=== PATIENT | female | born 1955 | race Caucasian/White ===

== ENCOUNTER 2017-03-08 11:06 | Inpatient (IN) | payer MEDICARE, MEDICAID ==
--- NOTE | 2017-03-08 11:27 | ED Physician Chart ---
ED Chief Complaint/HPI - Patient Information Date Seen:: 03/08/17 Time Seen:: 11:15 Chief Complaint:: Hematochezia History of Present Illness:: onset x one day of hematochezia; no report of hematemesis, melena, Abd. pain, flank pain, A/N/V/D/C, fever, chills, C/P, SOB, cough, neck pain, H/As, weakness , or dizziness Allergies:: Allergies Allergy/AdvReac Type Severity Reaction Status Date / Time No Known Allergies Allergy Verified 03/08/17 11:17 Vitals:: Vital Signs - 8 hr 03/08/17 11:17 Temp 97.7 F HR 70 RR 14 BP 140/69 O2 Sat % 98 Historian:: Patient, EMS Review:: Nurse's Note Reviewed, EMS run form Reviewed ED Review of Systems - Review of Systems General/Constitutional: Fever, Chills, No weight loss, Weakness, No diaphoresis , No edema, No loss of appetite Skin: No skin lesions, No rash, No bruising Head: No headache, No light-headedness Eyes: No loss of vision, No pain, No diplopia ENT: No earache, No nasal drainage, No sore throat, No tinnitus Neck: No neck pain, No swelling, No thyromegaly, No stiffness, No mass noted Cardio Vascular: No chest pain, No palpitations, No PND, No orthopnea, No edema Pulmonary: No SOB, No cough, No sputum, No wheezing GI: Nausea, Vomiting, Diarrhea, No pain, No melena, Hematochezia, No constipation, No hematemesis G/U: No dysuria, No frequency, No hematuria Operating Room Tech: No vaginal discharge, No abnormal vaginal bleed, No contraction Musculoskeletal: No bone or joint pain, No back pain, No muscle pain Endocrine: No polyuria, No polydipsia Psychiatric: No prior psych history, No depression, No anxiety, No suicidal ideation Hematopoietic: No bruising, No lymphadenopathy Allergic/Immuno: No urticaria, No angioedema Neurological: No syncope, Focal symptoms, No weakness, No paresthesia, No headache, No seizure, No dizziness, Confusion, No vertigo ED Past Medical History - Past Medical History Obtainable: Yes Past Medical History: HTN, CVA/TIA, PUD/GERD, Dementia Family History: Diabetes Melitus, HTN Social History: Non Smoker, No Alcohol, No Drug Use, Single, Care Facility Surgical History: PEG/GTube Psychiatricy History: Dementia Medication: Reviewed Family Medical History - Family Member Mother History Unknown: Yes ED Physical Exam - Physical Examination General/Constitutional: Awake, Well-developed, well-nourished, Alert, No distress, GCS 15, Non-toxic appearing, Ambulatory Head: Atraumatic Eyes: Lids, conjuctiva normal, PERRL, EOMI Skin: Nl inspection, No rash, No skin lesions, No ecchymosis, Well hydrated, No lymphadenopathy ENMT: External ears, nose nl, Nasal exam nl, Lips, teeth, gums nl Neck: Nontender, Full ROM w/o pain, No JVD, No nuchal rigidity, No bruit, No mass, No stridor Respiratory: Nl effort/Exclusion, Clear to Auscultation, No Wheeze/Rhonchi/Rales Cardio Vascular: RRR, No murmur, gallop, rubs, NL S1 S2 GI: No tenderness/rebounding/guarding, No organomegaly, No hernia, Normal BS's, Nondistended, No mass/bruits, No McBurney tenderness : No CVA tenderness Extremities: No tenderness or effusion, Full ROM, normal strength in all extremities, No edema, Normal digits & nails Neuro/Psych: Alert/oriented, DTR's symmetric, Normal sensory exam, Normal motor strength, Judgement/insight normal, Mood normal, Normal gait Other Neuro/Psych comments:: + old CVA; Disoriented and Confused Misc: Normal back, No paraspinal tenderness ED Labs/Radiology/EKG Results - Lab Results Comments:: Na+: 133 - Radiology Results Comments:: NAD - EKG Interpretations EKG Time:: 11:52 Rate & Rhythm: 85; NSR Comments:: T-Wave Inversions ED Septic Shock - . Is Septic Shock (SBP<90, OR Lactate>4 mmol\L) present?: No - <6hrs of presentation: Vital Signs: Vital Signs - 8 hr 03/08/17 11:17 Temp 97.7 F HR 70 RR 14 BP 140/69 O2 Sat % 98 ED Reassessment (Disposition) - Reassessment Reassessment Condition:: Improved - Diagnosis Diagnosis:: Dx: Myocardial Ischemia; Hematochezia; GI Bleed; Hyponatremia; Dehydration; Rectal Bleeding - Aftercare/Follow up Instructions Aftercare/Follow-Up Instructions:: Counseled pt regarding lab results/diagnosis & need follow up, Counseled pt & family regarding lab results/diagnosis & need follow up - Patient Disposition Discharge/Transfer:: Acute Care w/in this hosp Accepting Physician:: Dr. Lennon Time Called:: 1350 Time Responded:: 13:50 Admitted to:: Telemetry Spoke to:: Dr. Lennon Admitting Medical Physician:: Dr. Lennon Condition at Disposition:: Stable, Improved
[2017-03-08] MEDS ORDERED: Sodium Chloride 0.9% 1,000 ML IV ONE (11:28)
[2017-03-08 11:48] LABS: % BASOPHILS 0.5 % (0.0-2.0); % EOSINOPHILS 3.2 % (0.0-5.0); % LYMPHOCYTES 24.3 % (20.0-50.0); HEMOGLOBIN 14.5 gm/dL (12-16); MEAN CELL VOLUME 88.4 fl (81-100); MEAN CORPUSCULAR HEMOGLOBIN 29.8 pg (27.0-31.0); MEAN CORPUSCULAR HGB CONC 33.8 pg (28.0-36.0); MEAN PLATELET VOLUME 7.8 fl; NEUTROPHILE ABSOLUTE 4.8 Th/cmm (1.8-8.0); PLATELET COUNT 355 Th/cmm (150-400); RED BLOOD COUNT 4.87 Mil/cmm (3.80-5.10); RED CELL DISTRIBUTION WIDTH 12.7 % (11.5-20.0); WHITE BLOOD COUNT 7.3 Th/cmm (4.8-10.8)
[2017-03-08 12:02] LABS: INR 1.06 (0.5-1.4)
[2017-03-08 12:16] LABS: AMYLASE SERUM 33 U/L (29-103); LIPASE 25 U/L (11-82)
[2017-03-08 12:19] LABS: ALB/GLOB RATIO 1.1 (1.0-1.8); ALKALINE PHOSPHATASE 96 U/L (34-104); ANION GAP 11.5 (7.0-16.0); BILIRUBIN,TOTAL 0.4 mg/dL (0.3-1.0); BUN - UREA NITROGEN 23 mg/dL (7-25); BUN/CREATININE RATIO 57.5; CALCIUM SERUM 9.8 mg/dL (8.6-10.3); CARBON DIOXIDE 21.6 mEq/L (21.0-31.0); CHLORIDE 104 mEq/L (98-107); CHOLESTEROL 173 mg/dL (<200); CREATININE - SERUM 0.4 mg/dL (0.6-1.2); GLUCOSE 123 mg/dL (70-105); POTASSIUM SERUM 4.1 mEq/L (3.5-5.1); SGOT 21 U/L (13-39); SGPT/ALT 18 U/L (7-52); SODIUM SERUM 133 mEq/L (136-145); TRIGLYCERIDES 206 mg/dL (<150)
--- NOTE | 2017-03-08 12:31 | Diagnostic Imaging Report ---
Portable chest x-ray HISTORY: Pain There is a very poor inspiration. The heart is enlarged. No acute focal pulmonary processes. No evidence of pleural fluid. IMPRESSION: 1. Cardiomegaly 2. Allowing for a poor inspiration, no acute focal pulmonary processes.
[2017-03-08] MEDS ORDERED: D5-0.9%NS 1,000 ML IV SCH (17:30)
[2017-03-08] MEDS ORDERED: IOHEXOL 300MG/ML 100 ML VIAL ONE (20:31)
[2017-03-08] MEDS: Lactulose 10 Gm/15 mL 30mL UDC PO SCH (20:36)
[2017-03-08] MEDS: Polyvinyl Alcohol Ophth Soln 15 mL Bottle EACH EYE SCH (20:36)
[2017-03-08] MEDS: Sodium Chloride 0.9% 1,000 ML IV SCH (20:39)
[2017-03-08 21:33] VITALS: BP 120/66
[2017-03-09] MEDS: Fleet Enema 135 mL RC PRN ×2 (03:19→03:20)
[2017-03-09 06:42] LABS: ANION GAP 10.2 (7.0-16.0); BUN - UREA NITROGEN 18 mg/dL (7-25); CALCIUM SERUM 8.8 mg/dL (8.6-10.3); CARBON DIOXIDE 22.5 mEq/L (21.0-31.0); CHLORIDE 107 mEq/L (98-107); CREATININE - SERUM 0.4 mg/dL (0.6-1.2); GLUCOSE 107 mg/dL (70-105); POTASSIUM SERUM 3.7 mEq/L (3.5-5.1); SODIUM SERUM 136 mEq/L (136-145)
[2017-03-09 07:02] LABS: % EOSINOPHILS 2.5 % (0.0-5.0); % LYMPHOCYTES 29.3 % (20.0-50.0); % MONOCYTES 7.8 % (2.0-10.0); % NEUTROPHILS 60.4 % (40.0-80.0); HEMOGLOBIN 12.9 gm/dL (12-16); MEAN CELL VOLUME 88.6 fl (81-100); MEAN CORPUSCULAR HGB CONC 33.9 pg (28.0-36.0); MEAN PLATELET VOLUME 8.1 fl; NEUTROPHILE ABSOLUTE 3.6 Th/cmm (1.8-8.0); PLATELET COUNT 337 Th/cmm (150-400); RED BLOOD COUNT 4.29 Mil/cmm (3.80-5.10); RED CELL DISTRIBUTION WIDTH 12.7 % (11.5-20.0); WHITE BLOOD COUNT 5.9 Th/cmm (4.8-10.8)
--- NOTE | 2017-03-09 08:21 | Diagnostic Imaging Report ---
CT abdomen and pelvis with intravenous contrast Indication: Abdominal distention Comparison: None, Technique: Axial images were obtained from the lung bases to the bilateral proximal femurs with IV contrast. Coronal reconstructions were made. total DLP: 940, [id number] FINDINGS: Hypoventilatory atelectatic lung changes are seen with right basal passive atelectatic changes. Exam is limited due to motion. Multiple hepatic cysts are noted the largest along the posterior right lobe measuring 7 x 6 cm. Mildly distended gallbladder is noted. 5 mm indeterminate focus is seen along the fundus of the gallbladder. No focal splenic or pancreatic lesions. No focal adrenal lesions. No evidence of hydronephrosis or focal renal lesions. There is severe distal fecal impaction with massive distention of the sigmoid colon. Additional generalized distended loops of primarily large bowel are noted. There is trace fluid in the right lower quadrant. A gastrostomy feeding tube is noted. Appendix is not -visualized. Moderate atherosclerotic vascular disease is noted. Degenerative changes of the spine are noted with mild scoliosis. There is a chronic moderate compression deformity of L1. IMPRESSION: Marked distal fecal impaction with massive distention of the sigmoid colon and primarily large bowel loops proximally secondary to patient's distal fecal impaction. Mild distended gallbladder. 5mm focus is seen along the fundus of the gallbladder, indeterminate, and may represent a gallstone or gallbladder wall polyp. Recommend short-term follow-up with ultrasound. Hepatic cysts. Trace free fluid suspected in the right lower quadrant. Appendix was not visualized. Percutaneous gastrostomy feeding tube Atherosclerotic vascular disease Chronic moderate compression deformity of L1.
[2017-03-09] MEDS ORDERED: [UNRECOGNIZED DRUG - OTHER] PO SCH (09:00)
[2017-03-09] MEDS: Polyvinyl Alcohol Ophth Soln 15 mL Bottle EACH EYE SCH ×4 (09:00→20:22)
[2017-03-09] MEDS ORDERED: ENTERAL NUTRITION FORMULA PO SCH (09:00)
[2017-03-09] MEDS: Lactulose 10 Gm/15 mL 30mL UDC PO SCH ×2 (09:00→20:23)
[2017-03-09] MEDS: Sodium Chloride 0.9% 1,000 ML IV SCH (17:25)
--- NOTE | 2017-03-09 18:47 | History & Physical ---
ADMIT DATE: 03/08/2017 CHIEF COMPLAINT: Hematochezia. HISTORY OF PRESENT ILLNESS: The patient is a 61-year-old female with reports of 1 day of hematochezia, ____ hematemesis, melena, abdominal pain, flank pain or other complaints. ALLERGIES: No known allergies. REVIEW OF SYSTEMS: See history of present illness. PAST MEDICAL HISTORY: Hypertension, CVA/TIA, peptic ulcer/GERD, dementia. FAMILY HISTORY: Diabetes and hypertension. SOCIAL HISTORY: No reports of smoking, drinking or drug use. The patient is a resident of a longterm facility. PAST SURGICAL HISTORY: Gastrostomy tube. PSYCHIATRIC HISTORY: Dementia. MEDICATIONS: See medication form. PHYSICAL EXAMINATION: GENERAL: The patient is awake, alert, nontoxic in appearance. VITAL SIGNS: On admission, temperature 98.7, pulse of 70, blood pressure 140/69, respirations 14, oxygen saturation 90%. HEENT: Normocephalic, atraumatic. Extraocular movements intact. Pupils reactive to light. Oropharynx is clear. NECK: Supple. No thyromegaly. CARDIOVASCULAR: S1, S2. No rubs, gallops. RESPIRATORY: Clear. No wheezes or rhonchi. GASTROINTESTINAL: Soft, nontender, nondistended, bowel sounds. GENITOURINARY: No CVA tenderness. BACK: No midline tenderness. NEUROLOGIC: Cranial nerves 2-12 intact. Sensation intact. Neurovascular is intact. Normal gait. PSYCHIATRIC: The patient is slightly confused. LABORATORY DATA: Hematology; WBC 7.3, hemoglobin 14.5, hematocrit 43.0, platelet count 355. PT 11.0, INR 1.06. Chemistry: Sodium 133, potassium 4.1, chloride 104, bicarbonate 21, anion gap 11, BUN 23, creatinine 0.4, GFR more than 60, glucose 123, calcium 9.8, total bilirubin 0.4, AST 21, ALT 18, and alk phos 96, creatinine kinase 42. Troponin less than 0.01, BNP 7.9, total protein 7.9, albumin 4.2, globulin 3.7, triglycerides 206, cholesterol 173, LDL is 148, HDL 30, amylase is 33, lipase is 25. MICROBIOLOGY: 03/08/2017, pending. RADIOLOGY: Chest x-ray shows cardiomegaly. No acute focal pulmonary process. Abdomen/pelvis CT shows marked distal fecal impaction with massive distention of the sigmoid colon and primarily large bowel approximately secondary to patient's distal fecal impaction, mild distended gallbladder 0.5 mm, hepatic cysts, appendix not visualized, PEG tube in place, atherosclerotic vascular disease, chronic moderate compression deformity of L1. EKG shows normal sinus with T-wave inversions. IMPRESSION: 1. Rectal bleed. 2. Hematochezia. 3. Rule out acute coronary syndrome. 4. Gastrointestinal bleed. 5. Hyponatremia. 6. Hyperglycemia. 7. Hypertriglyceridemia. 8. Hypertension. 9. History of cerebrovascular accident/transient ischemic attack. 10. History of peptic ulcer disease/gastroesophageal reflux disease. 11. Dementia. 12. Dysphagia. 13. Status post gastrostomy tube. PLAN: The patient admitted to telemetry unit at [facility]. Due for labs as needed. JOB# [id number]
--- NOTE | 2017-03-09 20:59 | Consultation ---
DATE OF CONSULTATION: 03/09/2017 REQUESTING PHYSICIAN: Dr. Emery Lennon. REASON FOR CONSULTATION: Rectal bleeding. HISTORY OF PRESENT ILLNESS: This is a 61-year-old female with encephalopathy and dysphagia status post G-tube insertion, admitted from [facility] for rectal bleeding. On imaging here, she was noted to have fecal impaction. Her G-tube feedings were restarted. PAST MEDICAL HISTORY: As above. It is unknown whether the patient has had a previous colonoscopy. MEDICATIONS: Here are artificial tears, lactulose, and IV fluids. Also, the patient received pantoprazole in the ER and Fleet enema. ALLERGIES: None. SOCIAL HISTORY: No recent tobacco, alcohol, or drugs. senior living resident. FAMILY HISTORY: Noncontributory. REVIEW OF SYSTEMS: A comprehensive 12-point review of systems conducted and is only positive for those signs and symptoms present in history of present illness. PHYSICAL EXAMINATION: VITAL SIGNS: Temperature 98.4, blood pressure 124/67, pulse of 89, respirations 12, and O2 sat is 97%. GENERAL: The patient is a well-developed, chronically ill-appearing female in no acute distress, nonverbal. HEENT: Sclerae nonicteric. Oropharynx is clear. CARDIOVASCULAR: Regular rate and rhythm. LUNGS: With occasional rhonchi at the bases. ABDOMEN: Soft, slightly distended, and mild tenderness to palpation. Intact G-tube. EXTREMITIES: No edema. LABORATORY DATA AND IMAGING: Hemoglobin is 12.9, WBC count is 5.9, and platelet count is 337,000. INR is normal. Creatinine is normal. Liver enzymes are normal. Amylase and lipase are normal. CT of the abdomen and pelvis done without contrast in the ER showed fecal impaction in the distal rectum with massive distention of the sigmoid colon and large bowel loops, mildly distended gallbladder with possible focus representing either a stone or polyp, hepatic cyst, G-tube intact. IMPRESSION: 1. Fecal impaction. 2. Rectal bleeding, likely from combination of rectal ulcer and/or hemorrhoids and/or proctitis. 3. Dysphagia with G-tube insertion. 4. Encephalopathy. RECOMMENDATIONS: 1. Bowel preparation will be given per G-tube and per rectum. 2. Hold tube feedings for today. 3. Monitor hemoglobin, transfuse as necessary. 4. May need colonoscopy eventually once the patient has been cleared out. This will take place if procedure has not been done recently. Thank you, Dr. Emery Lennon for involving us in the care of this patient. If you have any further questions, please call us. JOB# [id number]
[2017-03-10] MEDS: Sodium Chloride 0.9% 1,000 ML IV SCH ×2 (02:42→21:17)
--- NOTE | 2017-03-10 05:20 | Progress Notes ---
DATE: 03/09/2017 SUBJECTIVE: The patient is asleep. The patient is on IV fluids. OBJECTIVE VITAL SIGNS: Temperature 98.4, pulse 89, blood pressure 124/67, O2 sat is 97% on room air. CARDIOVASCULAR: S1 and S2 is clear. GASTROINTESTINAL: Soft, distended, nontender. Positive bowel sounds. LABORATORY DATA: Hematology; WBC 5.9, hemoglobin 12.9, hematocrit 43.0. Platelet count of 337. Chemistry: Sodium 137, potassium 3.7, chloride 104, bicarbonate 22, anion gap 10, BUN 18, creatinine 0.4. GFR is 160, glucose is 107, calcium 8.8. Microbiology: MRSA screen from 03/08/2017 negative. Radiology: No new results. ASSESSMENT: 1. Fecal impaction. 2. Rectal bleed. 3. Encephalopathy. 4. Hyponatremia, resolved. 5. Hyperglycemia. 6. Hypertriglyceridemia. 7. Dyslipidemia. 8. Hypertension. 9. Cerebrovascular accident/transient ischemic attack. 10. Peptic ulcer disease/gastroesophageal reflux disease. 11. Dementia. 12. Dysphagia. 13. Status post gastrostomy tube. PLAN: 1. Continue current medication. 2. Tube feedings on hold. 3. The patient may need colonoscopy. If you have any further questions, please call us. JOB# [id number]
[2017-03-10 06:09] LABS: HEMATOCRIT 36.2 % (41.0-60); HEMOGLOBIN 12.2 gm/dL (12-16); MEAN CORPUSCULAR HGB CONC 33.7 pg (28.0-36.0); MEAN PLATELET VOLUME 8.5 fl; RED BLOOD COUNT 4.07 Mil/cmm (3.80-5.10); RED CELL DISTRIBUTION WIDTH 12.8 % (11.5-20.0); WHITE BLOOD COUNT 5.5 Th/cmm (4.8-10.8)
[2017-03-10 06:25] LABS: ANION GAP 7.9 (7.0-16.0); BUN - UREA NITROGEN 10 mg/dL (7-25); BUN/CREATININE RATIO 33.3; CALCIUM SERUM 8.1 mg/dL (8.6-10.3); CARBON DIOXIDE 24.3 mEq/L (21.0-31.0); CHLORIDE 107 mEq/L (98-107); CREATININE - SERUM 0.3 mg/dL (0.6-1.2); GLUCOSE 91 mg/dL (70-105); POTASSIUM SERUM 3.2 mEq/L (3.5-5.1); SODIUM SERUM 136 mEq/L (136-145)
[2017-03-10 07:41] LABS: BAND NEUTROPHILE 1 % (0-10); NEUTROPHILS 54 % (40-80); TOTAL CELLS COUNTED 100
[2017-03-10 07:42] LABS: EOSINOPHIL 4 % (0-5); PLATELET ESTIMATE ADEQUATE (NORMAL)
[2017-03-10] MEDS: Lactulose 10 Gm/15 mL 30mL UDC PO SCH ×2 (09:10→20:54)
[2017-03-10] MEDS: Polyvinyl Alcohol Ophth Soln 15 mL Bottle EACH EYE SCH ×4 (09:14→20:55)
--- NOTE | 2017-03-10 09:41 | General Progress Note ---
Subjective - Review of Systems Service Date: 03/10/17 Events since last encounter: CT fecal impaction colonoscopy today Objective - Results Result Diagrams: 03/10/17 05:45 03/10/17 05:45 Recent Labs: Laboratory Last Values WBC 5.5 Th/cmm (4.8-10.8) 03/10/17 05:45 RBC 4.07 Mil/cmm (3.80-5.10) 03/10/17 05:45 Hgb 12.2 gm/dL (12-16) 03/10/17 05:45 Hct 36.2 % (41.0-60) L 03/10/17 05:45 MCV 89.0 fl (81-100) 03/10/17 05:45 MCH 30.0 pg (27.0-31.0) 03/10/17 05:45 MCHC Differential 33.7 pg (28.0-36.0) 03/10/17 05:45 RDW 12.8 % (11.5-20.0) 03/10/17 05:45 Plt Count 337 Th/cmm (150-400) 03/09/17 05:50 MPV 8.5 fl 03/10/17 05:45 Neutrophils % 60.4 % (40.0-80.0) 03/09/17 05:50 Band Neutrophils % 1 % (0-10) 03/10/17 05:45 Lymphocytes % 29.3 % (20.0-50.0) 03/09/17 05:50 Monocytes % 7.8 % (2.0-10.0) 03/09/17 05:50 Eosinophils % 2.5 % (0.0-5.0) 03/09/17 05:50 Basophils % 0.0 % (0.0-2.0) 03/09/17 05:50 Neutrophils (Manual) 54 % (40-80) 03/10/17 05:45 Lymphocytes 40 % (20-50) 03/10/17 05:45 Monocytes 1 % (2-10) L 03/10/17 05:45 Eosinophils 4 % (0-5) 03/10/17 05:45 Nucleated RBCs 2.0 % (0-0) H 03/10/17 05:45 Platelet Estimate ADEQUATE (NORMAL) 03/10/17 05:45 PT 11.0 SECONDS (9.5-11.5) 03/08/17 11:35 INR 1.06 (0.5-1.4) 03/08/17 11:35 Sodium 136 mEq/L (136-145) 03/10/17 05:45 Potassium 3.2 mEq/L (3.5-5.1) L 03/10/17 05:45 Chloride 107 mEq/L (98-107) 03/10/17 05:45 Carbon Dioxide 24.3 mEq/L (21.0-31.0) 03/10/17 05:45 Anion Gap 7.9 (7.0-16.0) 03/10/17 05:45 BUN 10 mg/dL (7-25) 03/10/17 05:45 Creatinine 0.3 mg/dL (0.6-1.2) L 03/10/17 05:45 Est GFR ( Amer) > 60.0 ml/min (>90) 03/10/17 05:45 Est GFR (Non-Af Amer) > 60.0 ml/min 03/10/17 05:45 BUN/Creatinine Ratio 33.3 03/10/17 05:45 Glucose 91 mg/dL (70-105) 03/10/17 05:45 POC Glucose 94 MG/DL (70 - 105) 03/10/17 05:54 Calcium 8.1 mg/dL (8.6-10.3) L 03/10/17 05:45 Total Bilirubin 0.4 mg/dL (0.3-1.0) 03/08/17 11:35 AST 21 U/L (13-39) 03/08/17 11:35 ALT 18 U/L (7-52) 03/08/17 11:35 Alkaline Phosphatase 96 U/L (34-104) 03/08/17 11:35 Ammonia 49 umol/L (16-53) 03/10/17 05:45 Creatine Kinase 42 U/L (30-223) 03/08/17 11:35 Troponin I < 0.01 ng/mL (0.01-0.05) L 03/08/17 11:35 B-Natriuretic Peptide 7.9 pg/mL (5.0-100.0) 03/08/17 11:35 Total Protein 7.9 gm/dL (6.0-8.3) 03/08/17 11:35 Albumin 4.2 gm/dL (3.7-5.3) 03/08/17 11:35 Globulin 3.7 gm/dL 03/08/17 11:35 Albumin/Globulin Ratio 1.1 (1.0-1.8) 03/08/17 11:35 Triglycerides 206 mg/dL (<150) H 03/08/17 11:35 Cholesterol 173 mg/dL (<200) 03/08/17 11:35 LDL Cholesterol Direct 148 mg/dL (75-193) 03/08/17 11:35 HDL Cholesterol 30 mg/dL (23-92) 03/08/17 11:35 Amylase 33 U/L (29-103) 03/08/17 11:35 Lipase 25 U/L (11-82) 03/08/17 11:35 - Physical Exam Vitals and I&O: Vital Signs Temp 98.0 F 03/10/17 04:00 Pulse 61 03/10/17 04:00 Resp 18 03/10/17 04:00 BP 117/71 03/10/17 04:00 Pulse Ox 95 03/10/17 04:00 Intake & Output 03/09/17 03/10/17 03/10/17 18:59 06:59 18:59 Intake Total 4928.333 Output Total 1 Balance -1 4928.333 Weight (lbs) 80.739 kg 79.832 kg Intake: Intake, IV Amount 928.333 Sodium Chloride 0.9% 1, 928.333 000 ml @ 100 mls/hr IV . Q10H [facility] Rx#:[id number] Other 4000 Output: Stool 1 Other: # Voids 3 3 # Bowel Movements 3 Stool Characteristics Soft Brown Active Medications: Current Medications Artificial Tears (Artificial Tears Ophth Soln) 1 drop EACH EYE QID LYSSA Stop: 05/07/17 20:59 Last Admin: 03/10/17 09:14 Dose: 1 drop Sodium Chloride (Nacl 0.9%) 1,000 mls @ 100 mls/hr IV .Q10H LYSSA Stop: 05/07/17 17:55 Last Admin: 03/10/17 02:42 Dose: 100 mls/hr Lactulose (Cephulac) 20 gm PO Q12HR LYSSA Stop: 05/07/17 20:59 Last Admin: 03/10/17 09:10 Dose: Not Given Ondansetron HCl (Zofran) 4 mg IV Q4H PRN PRN Reason: Nausea / Vomiting Stop: 05/08/17 10:30 Last Admin: 03/09/17 21:35 Dose: 4 mg
--- NOTE | 2017-03-10 12:26 | Consultation ---
DATE OF CONSULTATION: 03/10/2017 REFERRING PHYSICIAN: Dr. Lennon. REASON FOR CONSULTATION: Rectal bleeding. Thank you for referring this patient to me. HISTORY OF PRESENT ILLNESS: This is a 61-year-old female who came in to ER because of rectal bleeding. No hematemesis. PAST MEDICAL HISTORY: Includes hypertension, CVA, TIA, peptic ulcer, GERD, dementia, and diabetes. On admission, the CT scan showed severe fecal impaction with markedly distended colon. LABORATORY STUDIES: CBC is normal. Chemistry likewise. PHYSICAL EXAMINATION: GENERAL: The patient has a G-tube in place. ABDOMEN: Distended. There is a scar in the midline abdomen. The surgery of which we do not know at this point. She has minimal tenderness. No mass is palpated. GI evaluation is in place and colonoscopy has been scheduled. We will follow with you. JOB# [id number]
[2017-03-10] MEDS ORDERED: Meperidine 50 mg/mL 1mL Syr ONE ×2 (12:50→13:32)
[2017-03-10] MEDS ORDERED: Midazolam 1mg/ml 2 ml vial IV ONE (12:51)
[2017-03-10] MEDS ORDERED: fentaNYL Citrate 100 mcg/2mL Vial ONE (13:13)
--- NOTE | 2017-03-10 15:49 | Operative Report ---
DATE OF SURGERY: 03/10/2017 PROCEDURE: Colonoscopy with biopsy. PREOPERATIVE DIAGNOSIS: Rectal bleeding and fecal impaction. POSTPROCEDURE DIAGNOSES: 1. Long dilated colon with suboptimal bowel preparation; exam up to cecum. 2. An 8 mm sessile distal rectal polyp, possibly overlying ulcerations, status post biopsy. 3. Small hemorrhoids. INDICATION: A 61-year-old, mentally challenged female, with dysphagia and G-tube insertion and admitted for fecal impaction and rectal bleeding. CONSENT: Informed consent was obtained from the patient's family prior to procedure after explaining risks, benefits, and alternatives including but not limited to infection, bleeding, perforation and . SEDATION: 2 mg of Versed and 50 mg IV Demerol. DESCRIPTION OF PROCEDURE AND FINDINGS: The procedure took place as an inpatient in the GI suite of [facility]. The patient was kept in the left lateral decubitus position. Adequate sedation was achieved with the above medications. Rectal examination revealed normal sphincter tone with no rectal masses. The scope was then advanced all the way to the cecum, which was visualized by landmarks of ileocecal valves. The bowel preparation was suboptimal and only the ileocecal was able to be seen. The appendiceal orifice was not seen properly. Given suboptimal bowel preparation, lesion less than. 1 cm may have been missed. The scope was then slowly withdrawn and underlying colonic mucosa examined in detail. The proximal scope withdrawal time from cecum to anus was about 8 minutes. In the distal rectum, there was an 8 mm distal rectal polyp, perhaps overlying an ulceration and the rectum was somewhat limited due to the presence of the liquid stool here. Small internal hemorrhoids were noted on end view of the anal verge. The scope was withdrawn. The patient tolerated the procedure well, no complications anticipated. RECOMMENDATIONS: 1. Follow up biopsy results. 2. Resume tube feedings. 3. Monitor hemoglobin, transfuse as necessary. 4. Laxatives to avoid fecal impaction in the future. Thank you, Dr. Emery Lennon for involving us in the care of your patient. If you have any further questions, please call us to help. JOB# [id number] JULIO
[2017-03-10] MEDS ORDERED: Potassium Chloride Elixir 20 mEq /15 mL UDC GT ONE ×3 (19:03→20:00)
[2017-03-11] MEDS: Polyvinyl Alcohol Ophth Soln 15 mL Bottle EACH EYE SCH ×2 (09:24→13:34)
[2017-03-11] MEDS: Lactulose 10 Gm/15 mL 30mL UDC PO SCH (09:24)
--- NOTE | 2017-03-11 10:11 | General Progress Note ---
Subjective - Review of Systems Service Date: 03/11/17 Events since last encounter: minimal LEENA drainage check PT await Cardiology prescription for anticoagulant Objective - Results Result Diagrams: 03/10/17 05:45 03/10/17 05:45 Recent Labs: Laboratory Last Values WBC 5.5 Th/cmm (4.8-10.8) 03/10/17 05:45 RBC 4.07 Mil/cmm (3.80-5.10) 03/10/17 05:45 Hgb 12.2 gm/dL (12-16) 03/10/17 05:45 Hct 36.2 % (41.0-60) L 03/10/17 05:45 MCV 89.0 fl (81-100) 03/10/17 05:45 MCH 30.0 pg (27.0-31.0) 03/10/17 05:45 MCHC Differential 33.7 pg (28.0-36.0) 03/10/17 05:45 RDW 12.8 % (11.5-20.0) 03/10/17 05:45 Plt Count 337 Th/cmm (150-400) 03/09/17 05:50 MPV 8.5 fl 03/10/17 05:45 Neutrophils % 60.4 % (40.0-80.0) 03/09/17 05:50 Band Neutrophils % 1 % (0-10) 03/10/17 05:45 Lymphocytes % 29.3 % (20.0-50.0) 03/09/17 05:50 Monocytes % 7.8 % (2.0-10.0) 03/09/17 05:50 Eosinophils % 2.5 % (0.0-5.0) 03/09/17 05:50 Basophils % 0.0 % (0.0-2.0) 03/09/17 05:50 Neutrophils (Manual) 54 % (40-80) 03/10/17 05:45 Lymphocytes 40 % (20-50) 03/10/17 05:45 Monocytes 1 % (2-10) L 03/10/17 05:45 Eosinophils 4 % (0-5) 03/10/17 05:45 Nucleated RBCs 2.0 % (0-0) H 03/10/17 05:45 Platelet Estimate ADEQUATE (NORMAL) 03/10/17 05:45 PT 11.0 SECONDS (9.5-11.5) 03/08/17 11:35 INR 1.06 (0.5-1.4) 03/08/17 11:35 Sodium 136 mEq/L (136-145) 03/10/17 05:45 Potassium 3.2 mEq/L (3.5-5.1) L 03/10/17 05:45 Chloride 107 mEq/L (98-107) 03/10/17 05:45 Carbon Dioxide 24.3 mEq/L (21.0-31.0) 03/10/17 05:45 Anion Gap 7.9 (7.0-16.0) 03/10/17 05:45 BUN 10 mg/dL (7-25) 03/10/17 05:45 Creatinine 0.3 mg/dL (0.6-1.2) L 03/10/17 05:45 Est GFR ( Amer) > 60.0 ml/min (>90) 03/10/17 05:45 Est GFR (Non-Af Amer) > 60.0 ml/min 03/10/17 05:45 BUN/Creatinine Ratio 33.3 03/10/17 05:45 Glucose 91 mg/dL (70-105) 03/10/17 05:45 POC Glucose 94 MG/DL (70 - 105) 03/10/17 05:54 Calcium 8.1 mg/dL (8.6-10.3) L 03/10/17 05:45 Total Bilirubin 0.4 mg/dL (0.3-1.0) 03/08/17 11:35 AST 21 U/L (13-39) 03/08/17 11:35 ALT 18 U/L (7-52) 03/08/17 11:35 Alkaline Phosphatase 96 U/L (34-104) 03/08/17 11:35 Ammonia 49 umol/L (16-53) 03/10/17 05:45 Creatine Kinase 42 U/L (30-223) 03/08/17 11:35 Troponin I < 0.01 ng/mL (0.01-0.05) L 03/08/17 11:35 B-Natriuretic Peptide 7.9 pg/mL (5.0-100.0) 03/08/17 11:35 Total Protein 7.9 gm/dL (6.0-8.3) 03/08/17 11:35 Albumin 4.2 gm/dL (3.7-5.3) 03/08/17 11:35 Globulin 3.7 gm/dL 03/08/17 11:35 Albumin/Globulin Ratio 1.1 (1.0-1.8) 03/08/17 11:35 Triglycerides 206 mg/dL (<150) H 03/08/17 11:35 Cholesterol 173 mg/dL (<200) 03/08/17 11:35 LDL Cholesterol Direct 148 mg/dL (75-193) 03/08/17 11:35 HDL Cholesterol 30 mg/dL (23-92) 03/08/17 11:35 Amylase 33 U/L (29-103) 03/08/17 11:35 Lipase 25 U/L (11-82) 03/08/17 11:35 - Physical Exam Vitals and I&O: Vital Signs Temp 97.1 F 03/11/17 04:00 Pulse 64 03/11/17 04:00 Resp 19 03/11/17 04:00 BP 111/49 03/11/17 04:00 Pulse Ox 98 03/11/17 04:00 Intake & Output 03/10/17 03/11/17 03/11/17 18:59 06:59 18:59 Intake Total 1180 Balance 1180 Weight (lbs) 79.832 kg 82.418 kg Intake: Intake, IV Amount 1000 Sodium Chloride 0.9% 1, 1000 000 ml @ 100 mls/hr IV . Q10H [facility] Rx#:[id number] Oral 0 Tube Feeding 180 Other: # Voids 4 4 # Bowel Movements 3 Active Medications: Current Medications Artificial Tears (Artificial Tears Ophth Soln) 1 drop EACH EYE QID LYSSA Stop: 05/07/17 20:59 Last Admin: 03/11/17 09:24 Dose: 1 drop Sodium Chloride (Nacl 0.9%) 1,000 mls @ 100 mls/hr IV .Q10H LYSSA Stop: 05/07/17 17:55 Last Admin: 03/10/17 21:17 Dose: 100 mls/hr Lactulose (Cephulac) 20 gm PO Q12HR LYSSA Stop: 05/07/17 20:59 Last Admin: 03/11/17 09:24 Dose: 20 gm Ondansetron HCl (Zofran) 4 mg IV Q4H PRN PRN Reason: Nausea / Vomiting Stop: 05/08/17 10:30 Last Admin: 03/09/17 21:35 Dose: 4 mg Nutritional Asmnt/Malnutr-PDOC - Dietary Evaluation Malnutrition Findings (Please click <Entered> for more info): Nutritional Asmnt/Malnutrition Start: 03/10/17 13: 02 Text: Status: Complete Freq: Document 03/10/17 13:02 GSUN (Rec: 03/10/17 13:15 GSUN [email or web address]) Nutritional Asmnt/Malnutrition Patient General Information Nutritional Screening High Risk Screening Diagnosis Rectal bleed, hematochezia, GI bleed, r/p acute coronary syndrome Pertinent Medical Hx/Surgical Hx HTN, CVA/TIA, peptic ulcer/ GERD, dementia, PEG Subjective Information 61 year old female. 03/08 CT: fecal impaction, massive distention of sigmoid colon, large bowel loops. 03/09 morning, gtube held, NPO, due to abdomen distention. Pt prepped for colonscopy today, 7 BM since adm. Spoke to GÉNESIS Vaca, confimed above. Pt appeared overweight, no muscle fat wasting noted. Current Diet Order/ Nutrition Support NPO Pertinent Medications Cephulac, Zofran Pertinent Labs Reviewed. Nutritional Hx/Data Height 1.6 m Height (Calculated Centimeters) 160.0 Current Weight (lbs) 79.832 kg Weight (Calculated Kilograms) 79.8 Weight (Calculated Grams) 51875.3 [place] Body Weight 115 Weight Status Obese GI Symptoms Skin Integrity/Comment: Mainor 13. Estimated Nutritional Goals BEE in Kcals: Adj wt of IBW Calories/Kcals/Kg AdjWBW 130.3lb/59.2kg Kcals Calculated 1480-1776kcal (25-30kcal/kg) Protein: Adj wt of IBW Protein Calculated 59g (1g/kg) Fluid: ml 1480-1776ml (1ml/kcal) Nutritional Problem 1. Problem Problem Altered GI function related to Etiology unknwon aeb Signs/Symptoms: dx rectal bleed, hematochezia, GI bleed, pending colonscopy Intervention/Recommendation Comments 1. When appropriate to resume tube feeding, recommend Fiebrsource at 55ml/hr x 24hrs , providing 1320ml total volume, 1584kcal, 71g protein. Expected Outcomes/Goals Expected Outcomes/Goals 1. Pt to meet 100% of estimated nutritinoal eneds on tube feeding with tolerance.
[2017-03-11 10:41] LABS: INR 1.11 (0.5-1.4); PROTHROMBIN TIME (TEST) 11.6 SECONDS (9.5-11.5)
--- NOTE | 2017-03-11 19:25 | Discharge Summary ---
DATE OF DISCHARGE: 03/11/2017 DISCHARGE DIAGNOSES: 1. Status post colonoscopy with biopsy. 2. Rectal polyp. 3. Small hemorrhoids. 4. Rectal bleeding, resolved. 5. Fecal impaction, resolved. 6. Encephalopathy. 7. Dyslipidemia. 8. Hypertension. 9. Cerebrovascular accident/transient ischemic attack. 10. History of peptic ulcer disease/Gastroesophageal reflux disease. 11. ____. 12. Status post gastrostomy tube. HOSPITAL COURSE: The patient is a 61-year-old female transferred from a skilled facility. The patient was admitted with a diagnoses of rectal bleed, hematochezia, GI bleed, hyponatremia, hyperglycemia, hypertriglyceridemia/dyslipidemia, hypertension, history of cerebrovascular accident/transient ischemic attack, history of peptic ulcer disease/gastroesophageal reflux disease, status post gastrostomy tube. The patient was admitted to telemetry unit. Consultation obtained. GI consult Dr. Christopher Pyle and associates. Cardiovascular consultation Dr. Tolbert. Per recommendations from GI, the patient will require a colonoscopy. The patient underwent colonoscopy on 03/10/2017. Results of the colonoscopy showed long dilated colon with suboptimal preparation, exam to cecum, an 8 mm sessile distal rectal polyp, and small hemorrhoids. HOSPITAL COURSE: The patient has no further episodes of rectal bleed. The patient's labs have been stable. The patient will be discharged back to senior care facility. [facility]# [id number]
--- NOTE | 2017-03-12 05:34 | Progress Notes ---
DATE: 03/10/2017 SUBJECTIVE: The patient is awake. The patient is on IV fluids. The patient is scheduled for a colonoscopy today. OBJECTIVE: VITAL SIGNS: Temperature 98.8, pulse 66, blood pressure 123/67, respiratory rate 18, O2 sat is ____ on room air. CARDIOVASCULAR: S1 and S2. RESPIRATORY: Clear. GASTROINTESTINAL: Soft, positive bowel sounds. LABORATORY DATA: Hematology: WBC of 5.5, hemoglobin 12.2, hematocrit 36.2, platelet count unknown. Chemistries: Sodium 132, potassium 3.2, chloride 107, bicarbonate 24, anion gap 7.9, BUN 10, creatinine 0.3, GFR is more than 60, glucose is 91, calcium 8.1, ____. Microbiology: MRSA screen from 03/08/2017 negative. Radiology: No new results. ASSESSMENT: 1. Fecal impaction. 2. Rectal bleed. 3. Encephalopathy. 4. Dyslipidemia. 5. Hypertension. 6. Cerebrovascular accident/transient ischemic attack. 7. Peptic ulcer disease/gastroesophageal reflux disease. 8. Dementia. 9. Dysphagia, status post gastrostomy tube. 10. Hypokalemia. 11. Hypocalcemia. PLAN: 1. Continue current medications. 2. Obtain labs in a.m. 3. The patient is scheduled for colonoscopy today. ____. JOB# [id number]
--- NOTE | 2017-03-12 05:34 | Progress Notes ---
DATE: 03/11/2017 SUBJECTIVE: The patient is awake. The patient is on tube feeds. The patient underwent a colonoscopy yesterday. The patient is on IV fluids. OBJECTIVE: VITAL SIGNS: Temperature is 97.6, pulse is 60, blood pressure 123/74, respirations 19, O2 sat is 99% on room air. CARDIOVASCULAR: S1 and S2. RESPIRATORY: Clear. GASTROINTESTINAL: Soft. Positive bowel sounds. LABORATORY DATA: No labs for today. Radiology: No new results. Operative report on colonoscopy done on 03/10/2017 shows long dilated colon with suboptimal preparation, exam to cecum, an 8 mm sessile distal rectal polyp, possibly overlying ulcerations, status post biopsy and small hemorrhoids. ASSESSMENT AND PLAN: 1. Status post colonoscopy. 2. Rectal polyp. 3. Hemorrhoids. 4. Rectal bleed (resolved). 5. Encephalopathy. 6. Dyslipidemia. 7. Hypertension. 9. Cerebrovascular accident/transient ischemic attack. 10. Peptic ulcer disease/gastroesophageal reflux disease. 11. Dementia. 12. Dysphagia, status post gastrostomy tube. PLAN: Case management for discharge planning. Further ____ consults. JOB# [id number]
--- NOTE | 2017-03-14 14:07 | Pathology Report ---
[id number] Collection date: 03/10/2017 Surgeon: Dr. Zainab Pyle Specimen Description: Rectal polyp. Gross Description: Received in formalin are three fabian soft tissue fragments ranging from 0.1 to 0.2 cm in greatest dimension. Totally submitted in one cassette. Microscopic Description: The histologic sections show ulcerated colo-rectal mucosa with acute and chronic inflammation consisting of increased numbers of neutrophils and lymphocytes admixed with plasma cells. The mucosal surface shows areas of ulceration associated with this inflammation. There is no evidence for hyperplastic nor adenomatous glandular changes. Diagnosis: Ulcerated colo-rectal mucosa showing acute and chronic inflammation, consistent with an inflammatory polyp (rectal polyp). [facility]# [id number] JULIO
== END 2017-03-11 15:00 | disposition home or self-care (01) | DRG 377 ==
LOC: ER 11:06 → TELE 17:00
PROVIDERS: ADMIT Preventive Medicine Preventive Medicine/Occupational Environmental Medicine; ATTEND Preventive Medicine Preventive Medicine/Occupational Environmental Medicine
PROC: 0DBP8ZX Excision of Rectum, Via Natural or Artificial Opening Endoscopic, Diagnostic (ICD-10-PCS; principal; 2017-03-10)
PROC: 0DH64UZ Insertion of Feeding Device into Stomach, Percutaneous Endoscopic Approach (ICD-10-PCS; principal; 2017-03-10)
DX: K62.5 Hemorrhage of anus and rectum (principal); G93.40 Encephalopathy, unspecified; R13.10 Dysphagia, unspecified; E87.1 Hypo-osmolality and hyponatremia; E83.51 Hypocalcemia; K62.6 Ulcer of anus and rectum; Z93.1 Gastrostomy status; E78.5 Hyperlipidemia, unspecified; I10 Essential (primary) hypertension; K21.9 Gastro-esophageal reflux disease without esophagitis; K27.9 Peptic ulcer, site unspecified, unspecified as acute or chronic, without hemorrhage or perforation; F03.90 Unspecified dementia, unspecified severity, without behavioral disturbance, psychotic disturbance, mood disturbance, and anxiety; R73.9 Hyperglycemia, unspecified; K56.41 Fecal impaction; K62.1 Rectal polyp; K64.8 Other hemorrhoids; E86.0 Dehydration; I25.9 Chronic ischemic heart disease, unspecified; E87.6 Hypokalemia; Z86.73 Personal history of transient ischemic attack (TIA), and cerebral infarction without residual deficits; Z83.3 Family history of diabetes mellitus; Z82.49 Family history of ischemic heart disease and other diseases of the circulatory system
CPT/HCPCS: 36415-UA; 71010-TC; 80048-TC; 80053-TC; 80061-TC; 82140-TC; 82150-TC; 82550-TC; 82948-90; 83690-TC; 83880-TC; 84484-TC; 85007-TC; 85025-TC; 85027-TC; 85610-TC; 88305-90; 93005; 94760; 96374; C9113; J2250; J2405; J7030; Q9967; X6024; X6206; Z7506; Z7610